=== PATIENT | female | born 1950 | race Caucasian/White ===

== ENCOUNTER 2023-05-08 20:24 | Emergency (ER) | payer SELFPAY ==
[~2023-05-08] VITALS: Ht 147.3 cm; Wt 59.0 kg
[2023-05-08 20:32] VITALS: BP 101/96; PULSE 27; RESP 20; TEMP 98; O2SAT 98
[2023-05-08] MEDS ORDERED: fentaNYL citrate 0.05 MG/ML VIAL IVP ONE (20:35)
[2023-05-08] MEDS ORDERED: ATROPINE 1 MG/10 ML SYR IVP ONE (20:35)
[2023-05-08 20:46] VITALS: O2SAT 98
== END 2023-05-08 20:50 | disposition short-term general hospital (02) ==
LOC: MED 20:24
DX: S00.03XA Contusion of scalp, initial encounter (principal); I21.29 ST elevation (STEMI) myocardial infarction involving other sites; R00.1 Bradycardia, unspecified; R55 Syncope and collapse; E03.9 Hypothyroidism, unspecified; E11.9 Type 2 diabetes mellitus without complications; W01.198A Fall on same level from slipping, tripping and stumbling with subsequent striking against other object, initial encounter; Y93.89 Activity, other specified; Y92.89 Other specified places as the place of occurrence of the external cause; Y99.8 Other external cause status
CPT/HCPCS: 93005; 96374; 99291; J0461; J3010